=== PATIENT | male | born 1985 | race African-American/Black ===

== ENCOUNTER 2018-10-01 22:15 | Emergency (ER) | payer MEDICAID ==
[~2018-10-01] VITALS: Ht 177.8 cm; Wt 93.9 kg
[2018-10-01 22:29] VITALS: BP 133/70
== END 2018-10-02 01:44 | disposition left against medical advice (07) ==
LOC: ER 22:25
DX: Z53.21 Procedure and treatment not carried out due to patient leaving prior to being seen by health care provider (principal); R05 Cough; J34.89 Other specified disorders of nose and nasal sinuses; M79.672 Pain in left foot; K21.9 Gastro-esophageal reflux disease without esophagitis